=== PATIENT | female | born 1985 | race Caucasian/White ===

== ENCOUNTER 2024-03-03 22:49 | Emergency (ER) | payer MEDICARE, MEDICAID, SELFPAY ==
[2024-03-03 22:57] VITALS: BP 125/77; PULSE 69; RESP 15; TEMP 36.4; O2SAT 100
--- NOTE | 2024-03-03 23:37 | ED_ITS ---
HPI - Skin/Abscess/Foreign Bdy General Chief complaint: Skin/Abscess/Foreign Body Stated complaint: right calf bruise; infection? Time Seen by Provider: 03/03/24 23:11 History of Present Illness HPI narrative: 38-year-old female presents emergency department for a bug bite to her right l eg. Patient states 4 days ago she was running when she felt a sting to her right posterior calf. States since then it has developed into a red region to her right posterior calf. She states it is itchy, burning and painful. She went to urgent care yesterday and was prescribed clindamycin for cellulitis. States she took 3 pills and had not improved so she came to the ED for further evaluation. She also states she has been using p.o. Benadryl and topical hydrocortisone without improvement. She denies fever, vomiting. Last Tdap unknown. Related Data Allergies Allergy/AdvReac Type Severity Reaction Status Date / Time lamotrigine Allergy Unknown Rash Verified 03/03/24 23:21 bupropion [From Wellbutrin] Allergy Rash Verified 03/03/24 23:21 lurasidone [From Latuda] Allergy Rash Verified 03/03/24 23:21 hydroxyzine AdvReac Dry Mouth Verified 03/03/24 23:21 Review of Systems Review of Systems: All systems reviewed & are unremarkable except as noted in HPI and below PMFSH Social History Social History Smoking status: Never smoker Second hand tobacco smoke exposure: No Alcohol intake: current Exam Narrative: GENERAL: Well-appearing, well-nourished, and in no acute distress. HEAD: Normocephalic, atraumatic. EYES: EOMI. ENT: Nares clear, no rhinorrhea or epistaxis. Mucous membranes moist. NECK: Supple. CHEST: Clear to auscultation. No respiratory distress. HEART: Regular rate and rhythm. No murmur heard. Normal peripheral pulses. EXTREMITIES: Normal range of motion. No edema. SKIN: 6 by 3 cm area of cellulitis to the right posterior calf, no fluctuance or induration, no necrosis or vesicles. NEURO: No focal deficits. Alert and oriented x3 Course Vital Signs Vital signs: Vital Signs Temperature 97.6 F 03/03/24 22:57 Pulse Rate 69 03/03/24 22:57 Respiratory Rate 15 03/03/24 22:57 Blood Pressure 125/77 03/03/24 22:57 Pulse Oximetry 100 03/03/24 22:57 Oxygen Delivery Room Air 03/03/24 22:57 Temperature 97.6 F 03/03/24 22:57 Pulse Rate 69 03/03/24 22:57 Respiratory Rate 15 03/03/24 22:57 Blood Pressure 125/77 03/03/24 22:57 Pulse Oximetry 100 03/03/24 22:57 Oxygen Delivery Room Air 03/03/24 22:57 MDM - Skin/Abscess/Foreign Bdy MDM Narrative Medical decision making narrative: 38-year-old female presents emergency department for cellulitis to her right posterior calf after she felt a bug bite/sting 4 days ago well on the run. Vitals are stable. Exam significant for the above. There is no crepitus or vesicles, no induration or fluctuation. Exam is consistent with cellulitis. Pt declined tdap update. Plan to discontinue the clindamycin and start Keflex. Advised to follow closely with her PCP and I discussed strict ED return precautions. Also advised her to discontinue hydrocortisone cream and will provide topical Benadryl cream for pruritus. She is agreeable to plan verbalized understanding. Discharged in stable condition. Discharge Plan Discharge Clinical Impression: Cellulitis Qualifiers: Site of cellulitis: extremity Site of cellulitis of extremity: lower extremity Laterality: right Qualified Code(s): L03.115 - Cellulitis of right lower limb Patient Disposition: Home, Self-Care Condition: Stable Instructions: Antibiotic Form, Cellulitis (ED) Additional Instructions: Your evaluated in the emergency department for a red area to your leg. This is consistent with cellulitis. Please stop taking the clindamycin and start taking the cephalexin I prescribed you. Please use topical Benadryl as needed for itching. Take ibuprofen and Tylenol as needed for pain. Follow closely with her primary care provider. Return to the emergency department if the redness spreads, you develop fever, vomiting or other concerning symptoms. Prescriptions: New cephalexin 500 mg capsule 500 mg PO Q6H Qty: 28 0RF Anti-Itch(diphenhyd) with Zinc 1-0.1 % cream 1 applic topical QID PRN (Reason: itching) Qty: 28 0RF Follow-up/Referrals: PHYSICIAN NOT ON STAFF,NONSTAFF [Primary Care Provider] - Eduardo Durán MD [Physician] - 1 Day
[2024-03-03] MEDS: CEPHALEXIN 500 MG CAPSULE PO (23:44)
[2024-03-04 00:04] VITALS: BP 128/84; PULSE 67; RESP 15; O2SAT 100
== END 2024-03-04 00:05 | disposition home or self-care (01) ==
LOC: ANHED 23:55
PROVIDERS: Emergency Provider Physician Assistant
DX: L03.115 Cellulitis of right lower limb (principal)
CPT/HCPCS: 99283; A9270